=== PATIENT | female | born 1965 | race Caucasian/White ===

== ENCOUNTER 2017-10-06 10:47 | Day surgery (SDC) | payer OTHER ==
[~2017-10-06 10:47] MED LIST: ACETAMINOPHEN 325 MG TAB PO; CYCLOPENTOLATE 2% OPHTH SOLN 2ML BTL OS; LIDOCAINE 3.5 % 1ML OPHTH TOPICAL GEL OU; MIDAZOLAM INJ 2 MG/2 ML VIAL (J2250) As Ordered; OFLOXACIN 0.3 % (OCUFLOX) OPTH SOL 5ML OS; PHENYLEPHRINE 2.5% OPHTH SOL 2ML OS; PHENYLEPHRINE HCL 10 % OPHTH. SOL 5ML OS; PROPARACAINE 0.5% OPHTH SOL 15ML OS; TROPICAMIDE 1% OPHTH SOLN 2ML OS; fentaNYL 100 MCG/2 ML INJECTION (J3010) As Ordered
[2017-10-06] MEDS ORDERED: KETOROLAC 0.5% OPHTH SOLN OS (11:15)
[2017-10-06] MEDS ORDERED: TRIMETHOBENZAMIDE 300 MG CAP PO (11:15)
[2017-10-06] MEDS: POVIDONE-IODINE 5% OPHTH PREP SOL 30ML As Ordered (13:57)
[2017-10-06] MEDS: LIDOCAINE 1% SDV 5 ML VIAL As Ordered (14:00)
[2017-10-06] MEDS: BSS with VANC/TOB/EPI for EYE CASES IR (14:00)
[2017-10-06] MEDS: MOXIFLOXACIN IN BSS 0.25MG/0.25ML INTRACAMERAL INJ (OR EYE ONLY)(J2280) As Ordered (14:09)
[2017-10-06] MEDS: TRIAMCINOLONE PRES FR 40 MG/ML 1ML(TRIESENCE)(OR EYE ONLY)(J3300 PER 1MG) As Ordered (14:09)
[2017-10-06] MEDS: HEALON DUET (HEALON 10MG/ML 0.55ML & HEALON ENDOCOAT 30MG/ML 0.85ML) As Ordered (14:09)
[2017-10-06] MEDS: AcetaZOLAMIDE 500 MG ER CAP PO (15:05)
== END 2017-10-06 15:20 | disposition home or self-care (01) ==
LOC: M SDC 10:47
DX: H26.9 Unspecified cataract (principal); E78.00 Pure hypercholesterolemia, unspecified; E03.9 Hypothyroidism, unspecified; F41.9 Anxiety disorder, unspecified; I69.998 Other sequelae following unspecified cerebrovascular disease; R06.83 Snoring; N95.1 Menopausal and female climacteric states; Z79.899 Other long term (current) drug therapy; Z79.82 Long term (current) use of aspirin; Z95.5 Presence of coronary angioplasty implant and graft
CPT/HCPCS: 66984

== ENCOUNTER 2017-10-13 11:11 | Day surgery (SDC) | payer OTHER ==
[2017-10-13] MEDS: BSS with VANC/TOB/EPI for EYE CASES IR (07:00)
[~2017-10-13 11:11] MED LIST changes: -CYCLOPENTOLATE 2% OPHTH SOLN 2ML BTL OS; -LIDOCAINE 3.5 % 1ML OPHTH TOPICAL GEL OU; -OFLOXACIN 0.3 % (OCUFLOX) OPTH SOL 5ML OS; -PHENYLEPHRINE 2.5% OPHTH SOL 2ML OS; -PHENYLEPHRINE HCL 10 % OPHTH. SOL 5ML OS; +PHENYLEPHRINE HCL 10 % OPHTH. SOL 5ML XX; +PROPARACAINE 0.5% OPHTH SOL 15ML OD; -PROPARACAINE 0.5% OPHTH SOL 15ML OS; -TROPICAMIDE 1% OPHTH SOLN 2ML OS
[2017-10-13] MEDS ORDERED: LIDOCAINE 1% SDV 5 ML VIAL SQ (11:30)
[2017-10-13] MEDS: PHENYLEPHRINE 2.5% OPHTH SOL 2ML XX (12:14)
[2017-10-13] MEDS: LIDOCAINE 3.5 % 1ML OPHTH TOPICAL GEL OU (12:14)
[2017-10-13] MEDS: CYCLOPENTOLATE 2% OPHTH SOLN 2ML BTL XX (12:14)
[2017-10-13] MEDS: OFLOXACIN 0.3 % (OCUFLOX) OPTH SOL 5ML XX (12:14)
[2017-10-13] MEDS: TROPICAMIDE 1% OPHTH SOLN 2ML XX (12:14)
[2017-10-13] MEDS: POVIDONE-IODINE 5% OPHTH PREP SOL 30ML As Ordered (12:20)
[2017-10-13] MEDS: LIDOCAINE 1% SDV 5 ML VIAL As Ordered (13:26)
[2017-10-13] MEDS: HEALON DUET (HEALON 10MG/ML 0.55ML & HEALON ENDOCOAT 30MG/ML 0.85ML) As Ordered (13:26)
[2017-10-13] MEDS: TRIAMCINOLONE PRES FR 40 MG/ML 1ML(TRIESENCE)(OR EYE ONLY)(J3300 PER 1MG) As Ordered (13:27)
[2017-10-13] MEDS: MOXIFLOXACIN IN BSS 0.25MG/0.25ML INTRACAMERAL INJ (OR EYE ONLY)(J2280) As Ordered (13:27)
[2017-10-13] MEDS ORDERED: AcetaZOLAMIDE 500 MG ER CAP As Ordered (13:49)
[2017-10-13] MEDS: AcetaZOLAMIDE 500 MG ER CAP PO (13:55)
[2017-10-13] MEDS ORDERED: TRIMETHOBENZAMIDE 300 MG CAP PO (14:00)
[2017-10-13] MEDS ORDERED: KETOROLAC 0.5% OPHTH SOLN OD (14:00)
[2017-10-13] MEDS ORDERED: LR 1,000 ML IV (14:00)
[2017-10-13] MEDS ORDERED: ONDANSETRON 4MG/2ML VIAL (J2405) IV (14:00)
== END 2017-10-13 14:13 | disposition home or self-care (01) ==
LOC: M SDC 11:11
DX: H26.9 Unspecified cataract (principal); I10 Essential (primary) hypertension; E78.00 Pure hypercholesterolemia, unspecified; E03.9 Hypothyroidism, unspecified; F41.9 Anxiety disorder, unspecified; G24.9 Dystonia, unspecified; R06.83 Snoring; N95.9 Unspecified menopausal and perimenopausal disorder; Z79.899 Other long term (current) drug therapy; Z79.82 Long term (current) use of aspirin; Z86.73 Personal history of transient ischemic attack (TIA), and cerebral infarction without residual deficits; Z86.79 Personal history of other diseases of the circulatory system; Z95.5 Presence of coronary angioplasty implant and graft
CPT/HCPCS: 66984

== ENCOUNTER → 2018-01-07 | Outpatient (CLI) | payer OTHER ==
[~2018-01-07] MED LIST changes: -ACETAMINOPHEN 325 MG TAB PO; -MIDAZOLAM INJ 2 MG/2 ML VIAL (J2250) As Ordered; -PHENYLEPHRINE HCL 10 % OPHTH. SOL 5ML XX; +PROHANCE 279.3MG/ML 15ML VIAL (A9576) As Ordered; -PROPARACAINE 0.5% OPHTH SOL 15ML OD; -fentaNYL 100 MCG/2 ML INJECTION (J3010) As Ordered
== END ==
LOC: M RAD 14:05
DX: N93.9 Abnormal uterine and vaginal bleeding, unspecified (principal)
CPT/HCPCS: A9576

== ENCOUNTER 2018-02-23 08:01 | Day surgery (SDC) | payer OTHER ==
[2018-02-23] MEDS ORDERED: METOPROLOL TART 25 MG TABLET As Ordered (08:24)
[2018-02-23] MEDS: METOPROLOL TART 25 MG TABLET PO (08:34)
[2018-02-23 08:36] LABS: BASO % 0.4 % (0.0-1.0); EOS # 0.1 10^3/uL (0.0-0.50); EOS % 1.4 % (0.0-3.0); HEMATOCRIT 41.5 % (36.0-47.0); HEMOGLOBIN 13.6 g/dl (12.0-15.5); IMMATURE GRANULOCYTE % 0.3 % (0-3.0); LYMPH # 1.1 10^3/uL (1.5-4.5); LYMPH % 15.5 % (24.0-44.0); MEAN CORPUSCULAR HEMOGLOBIN 30.8 pg (27.0-33.0); MEAN CORPUSCULAR HGB CONC 32.8 g/dl (32.0-36.5); MEAN CORPUSCULAR VOLUME 93.9 fl (80.0-96.0); MONO # 0.6 10^3/uL (0.0-0.8); MONO % 8.3 % (0.0-5.0); NEUTROPHILS # 5.2 10^3/uL (1.8-7.7); NEUTROPHILS % 74.1 % (36.0-66.0); PLATELET COUNT, AUTOMATED 264 10^3/uL (150-450); RED BLOOD COUNT 4.42 10^6/uL (4.00-5.40); RED CELL DISTRIBUTION WIDTH 13.6 % (11.5-14.5); WHITE BLOOD COUNT 7.1 10^3/uL (4.0-10.0)
[2018-02-23] MEDS: LR 1,000 ML IV (08:38)
[2018-02-23 08:47] LABS: CONTROL LINE HCG INT CTR LINE PRESENT; HCG, SERUM QUALITATIVE NEGATIVE (NEGATIVE)
[2018-02-23 08:51] LABS: ANION GAP 7 MEQ/L (8-16); BLOOD UREA NITROGEN 17 MG/DL (7-18); CALCIUM LEVEL 8.4 MG/DL (8.5-10.1); CARBON DIOXIDE LEVEL 28 MEQ/L (21-32); CHLORIDE LEVEL 107 MEQ/L (98-107); CREATININE FOR GFR 0.81 MG/DL (0.55-1.30); GLOMERULAR FILTRATION RATE > 60.0 (>51); GLUCOSE, FASTING 101 MG/DL (70-100); POTASSIUM SERUM 4.3 MEQ/L (3.5-5.1); SODIUM LEVEL 142 MEQ/L (136-145)
[2018-02-23] MEDS ORDERED: PROPOFOL 200 MG/20 ML VIAL As Ordered (09:14)
[2018-02-23] MEDS ORDERED: MIDAZOLAM INJ 2 MG/2 ML VIAL (J2250) As Ordered (09:14)
[2018-02-23] MEDS ORDERED: dexameTHASONE 4 MG/ML 1ML VIAL (J1100) As Ordered (09:14)
[2018-02-23] MEDS ORDERED: ONDANSETRON 4MG/2ML VIAL (J2405) As Ordered (09:14)
[2018-02-23] MEDS ORDERED: LIDOCAINE 2% INJ 100 MG/5 ML SDV (FOR ANES.) As Ordered (09:14)
[2018-02-23] MEDS ORDERED: KETOROLAC 60 MG/2 ML VIAL (J1885) As Ordered (09:14)
[2018-02-23] MEDS ORDERED: fentaNYL 100 MCG/2 ML INJECTION (J3010) As Ordered (09:15)
[2018-02-23] MEDS ORDERED: ePHEDrine SULFATE 25 MG/5 ML(5MG/ML) SYRINGE As Ordered ×2 (09:41→10:01)
[2018-02-23] MEDS ORDERED: GLYCOPYRROLATE INJ 0.2 MG/ML 2 ML VIAL As Ordered (09:59)
[2018-02-23] MEDS ORDERED: PHENYLEPHRINE INJ 10MG/ML VIAL (J2370) As Ordered (10:01)
[2018-02-23] MEDS ORDERED: SILVER NITRATE APPLICATOR As Ordered (10:30)
[2018-02-23] MEDS ORDERED: HYDROMORPHONE HCL 0.5 MG/ 0.5 ML SYRINGE (J1170 PER 1) IV (10:45)
[2018-02-23] MEDS ORDERED: LR 1,000 ML IV (10:45)
[2018-02-23] MEDS ORDERED: fentaNYL 100 MCG/2 ML INJECTION (J3010) IV (10:45)
[2018-02-23] MEDS ORDERED: PERCOCET 5MG/325MG TAB PO (10:45)
[2018-02-23] MEDS ORDERED: ONDANSETRON 4MG/2ML VIAL (J2405) IV (10:45)
== END 2018-02-23 11:48 | disposition home or self-care (01) ==
LOC: M SDC 08:01
DX: N92.5 Other specified irregular menstruation (principal); N84.0 Polyp of corpus uteri; I10 Essential (primary) hypertension; E78.5 Hyperlipidemia, unspecified; F41.9 Anxiety disorder, unspecified; Z86.73 Personal history of transient ischemic attack (TIA), and cerebral infarction without residual deficits; Z79.82 Long term (current) use of aspirin; Z79.899 Other long term (current) drug therapy; E03.9 Hypothyroidism, unspecified
CPT/HCPCS: 58558